=== PATIENT | female | born 1975 | race Caucasian/White ===

== ENCOUNTER 2018-08-11 11:09 | Inpatient (IN) ==
[2018-08-11] MEDS ORDERED: LR 1,000 ML ONE ×2 (11:38→17:28)
[2018-08-11] MEDS ORDERED: KEFZOL 2 GM/D5W 2 GM/50 ML IVPB ONE (11:38)
--- NOTE | 2018-08-11 12:42 | Diag Imaging Result Doc PS360 ---
LYMPHOSCINTIGRAPHY W/IMG - 08/11/2018 INDICATION: Left Breast Cancer COMPARISON: None FINDINGS: 527 uCi of radiotracer was injected into the left breast. After the appropriate delay, there was successful visualization of at least one sentinel lymph node in the axilla. IMPRESSION: Successful lymphoscintigraphy of the breast. Electronically signed by Mike Lott 08/11/2018 12:39 PM
[2018-08-11] MEDS ORDERED: REGLAN ONE (13:17)
[2018-08-11] MEDS ORDERED: PEPCID ONE (13:17)
[2018-08-11] MEDS ORDERED: DIPRIVAN 1% ONE (13:56)
[2018-08-11] MEDS ORDERED: XYLOCAINE-MPF 2% ONE (13:57)
[2018-08-11] MEDS ORDERED: METHYLENE BLUE 0.5% ONE (14:24)
[2018-08-11] MEDS ORDERED: VERSED ONE (14:26)
[2018-08-11] MEDS ORDERED: FENTANYL ONE (14:32)
[2018-08-11] MEDS ORDERED: OFIRMEV 1000 MG/ISOTONIC SOLN 1,000 MG/100 ML BOTTLE ONE (15:02)
[2018-08-11] MEDS ORDERED: MORPHINE ONE (15:08)
[2018-08-11] MEDS ORDERED: SODIUM CHLORIDE 0.9% 10 ML ONE (15:44)
[2018-08-11] MEDS ORDERED: EPHEDRINE ONE (15:44)
[2018-08-11] MEDS ORDERED: ZOFRAN ONE (15:45)
[2018-08-11] MEDS ORDERED: ROBINUL ONE (16:11)
[2018-08-11] MEDS ORDERED: DECADRON ONE (16:43)
[2018-08-11 17:26] LABS: URINE SOURCE CATH
[2018-08-11] MEDS: DILAUDID ONE ×4 (17:30→17:45)
[2018-08-11 17:31] LABS: BILIRUBIN URINE NEGATIVE (NEGATIVE); BLOOD URINE NEGATIVE (NEGATIVE); COLOR YELLOW; GLUCOSE URINE NEGATIVE (NEGATIVE); KETONE URINE NEGATIVE (NEGATIVE); LEUKOCYTES URINE NEGATIVE (NEGATIVE); NITRITE URINE NEGATIVE (NEGATIVE); PH URINE 7.5; PROTEIN URINE NEGATIVE (NEGATIVE); SP GRAVITY URINE 1.018; TURBIDITY URINE CLEAR (CLEAR); UROBILINOGEN URINE NORMAL (NORMAL)
[2018-08-11 17:32] LABS: UR EPITHELIAL CELLS <10 /HPF (<10); URINE BACTERIA NEGATIVE /HPF; URINE RBC <10 /HPF (<10); URINE WBC <10 /HPF (<10)
[2018-08-11] MEDS ORDERED: PHENERGAN ONE (17:55)
[2018-08-11] MEDS ORDERED: ZOFRAN IV PRN (18:40)
[2018-08-11] MEDS: LR 1,000 ML IV SCH (19:05)
[2018-08-11] MEDS: BUSPAR PO SCH (20:40)
[2018-08-11] MEDS: MORPHINE IV PRN (20:40)
[2018-08-11] MEDS: ELAVIL PO SCH (20:40)
--- NOTE | 2018-08-12 01:38 | OPERATIVE NOTE ---
PROCEDURE DATE: 08/11/2018 PREOPERATIVE DIAGNOSIS: Left triple negative breast carcinoma. POSTOPERATIVE DIAGNOSES: Left triple negative breast carcinoma. PROCEDURE PERFORMED: 1. Left total mastectomy with left axillary sentinel lymph node biopsy and mapping. 2. Right total mastectomy. ESTIMATED BLOOD LOSS: 200 mL. ANESTHESIA: General. INDICATION: 43-year-old female with biopsy confirmed left upper medial triple negative breast carcinoma. OPERATIVE FINDINGS: There was a previously noted mass in left upper medial quadrant of breast. There is no pathologically enlarged lymph nodes. 1. [place] lymph node #1 ex vivo count was 8485. 2. [place] lymph node#2 was 31529. Final bed count was 84. The 1st sentinel lymph node was blue. Margins were grossly negative the primary tumor. DRAINS: Left Nico drains x2, posterior drains in the axilla, 1 anterior underneath the mastectomy flaps and 1 Nico drain on the right. OPERATIVE NOTE: Risks, benefits, alternatives discussed patient. She consented the procedure. She was seen preoperatively. Surgical site was confirmed and we did confirm that she was injected with her radiotracer. At this point she was taken to the operating room placed supine position. General anesthesia induced without complication. All bony prominences were padded. Her bilateral chest were prepped with chlorhexidine and draped in the usual fashion. Her left arm was draped circumferentially in the field. After a time-out, we planned elliptical incision around the left breast and we carried this in the subcutaneous plane up to level clavipectoral fascia superiorly, medially to the sternum, inferiorly to the rectus muscle, laterally to latissimus and removed breast marking suture placed medial. At this point we used the gamma probe to identify nodes within the axilla. There was sentinel node #1 with above findings sentinel node #2. The 1st node was blue. Please also note prior to making skin incision we did inject methylene blue below the nipple areolar complex. The sentinel nodes were sent down were found to be negative on frozen section. As such, we did not perform a completion axillary dissection. We removed the remaining breast tissue including the pectoralis fascia, passed it off stitch placed medially. We irrigated the wound. I did have to remove some extra skin so that there was not redundancy. We closed the dermis with interrupted 3-0 Vicryl sutures. Skin was closed surgical clips. This came together nicely. The skin flap was well perfused with no tension. At this point we turned our attention the right side. We made elliptical incision oriented around the nipple areolar complex and created our superior flap up to the level of the clavipectoral fascia, medially to the sternum, laterally to latissimus muscle. Her inferior flap was created in a similar fashion down to the level the rectus muscle. The breast was removed in its entirety including the pectoralis fascia was passed off. Stitch was placed medial. Hemostasis was noted. We closed the deep dermis interrupted 3-0 Vicryl sutures. Skin was closed surgical clips. A 4 x 4 Medipore tape dressing was applied bilaterally. We did irrigate the wound and note hemostasis bilaterally after a Valsalva maneuver was performed. She tolerated all this well, transferred recovery, I spoke to family. cc: Ronal Stoddard MD
[2018-08-12] MEDS: MORPHINE IV PRN ×6 (01:47→22:21)
[2018-08-12] MEDS: NORCO-7.5 PO PRN ×5 (03:10→20:59)
[2018-08-12] MEDS: LR 1,000 ML IV SCH ×2 (05:47→16:49)
[2018-08-12 06:10] LABS: HEMATOCRIT 30.7 % (37.0-47.0); HEMOGLOBIN 9.7 g/dL (12.0-16.0); MCH 28.2 PG (27-31); MCHC 31.6 g/dL (33-37); MCV 89.2 FL (81-99); MPV 9.7 FL (7.4-10.4); RBC 3.44 XMIL (4.2-5.4); RDW 14.1 % (11.5-14.5); WBC 8.31 X1000 (4.8-10.8)
[2018-08-12] MEDS ORDERED: FLU VACCINE IM ONE (06:29)
[2018-08-12 06:51] LABS: AGAP 12; BUN 7 mg/dL (8-22); CALCIUM 9.1 mg/dL (8.8-10.2); CHLORIDE 103 mmol/L (98-107); COSMO 276; CREATININE 0.5 mg/dL (0.5-0.9); ESTIMATED GFR > 60; GLUCOSE 99 mg/dL (70-104); POTASSIUM 4.4 mmol/L (3.5-5.1); SODIUM 139 mmol/L (136-145); TCO2 24 mmol/L (25-35)
[2018-08-12] MEDS: BUSPAR PO SCH ×2 (10:07→20:59)
[2018-08-12] MEDS: WELLBUTRIN XL PO SCH (10:08)
[2018-08-12] MEDS: PERIDEX MT SCH ×2 (10:08→21:00)
[2018-08-12] MEDS: ELAVIL PO SCH (20:59)
[2018-08-13] MEDS: LR 1,000 ML IV SCH ×2 (02:26→12:20)
[2018-08-13] MEDS: MORPHINE IV PRN ×3 (03:29→12:17)
[2018-08-13] MEDS: NORCO-7.5 PO PRN (07:25)
[2018-08-13 08:11] VITALS: BP 116/65
[2018-08-13] MEDS: PERIDEX MT SCH (08:34)
[2018-08-13] MEDS: BUSPAR PO SCH (08:35)
[2018-08-13] MEDS: WELLBUTRIN XL PO SCH (08:35)
--- NOTE | 2018-08-14 06:57 | DISCHARGE SUMMARY ---
ADMISSION DATE: 08/11/2018 DISCHARGE DATE: 08/13/2018 ADMITTING DIAGNOSIS: Left breast carcinoma, triple negative. PROCEDURE PERFORMED: 1. Left total mastectomy with sentinel node biopsy. 2. Right total mastectomy. HISTORY OF PRESENT ILLNESS: This 43-year-old female with biopsy confirmed left upper medial breast cancer. She underwent excision of this with plans for adjuvant therapy. HOSPITAL COURSE: The patient was seen prior to surgery and was cleared by anesthesia for above procedure. For details, please see dictated operative note. Postoperatively, she is admitted to our service for pain control and drain care. Diet was advanced. Her wounds remained flat. Her [place] drain output was appropriate and serosanguineous. Her postop labs were appropriate. Her [place] catheter was removed on postoperative day 1, and she was able to void. She could continue on SCDs, and was ambulatory perioperatively. She is on appropriate home medications. Her pain was controlled with [place] and morphine, and she was transitioned to Percocet at discharge. On the day of her discharge, she was appropriate from a wound and rehabilitation standpoint. DISPOSITION: Home with home health for drain care. Follow up appointment is with me in 1 week or when drain output is less than 30 mL a day. DISCHARGE INSTRUCTIONS: Were given written and verbal format. Discharge diet as tolerated. DISCHARGE MEDICATIONS: She is given a prescription for Percocet and Colace. Otherwise, continue her home medications. DISCHARGE CONDITION: Good. cc: Ronal Stoddard MD
== END 2018-08-13 13:27 | disposition home health service (06) | DRG 581 ==
LOC: SURHOLD 11:09 → 4N 18:27
PROVIDERS: ADMIT Surgery; ATTEND Surgery
PROC: GE.BXSN (2018-08-11 14:25)
CPT/HCPCS: 78195; 80048; 81001; 85027; 88305; 88307; 88331; 90686; 94761; 94799; A9270; A9520; J0131; J0690; J1100; J1170; J2250; J2270; J2405; J2550; J3010; J7120; Q9968